=== PATIENT | male | born 1965 | race Caucasian/White ===

== ENCOUNTER 2018-03-04 19:09 | Emergency (ER) | payer OTHER ==
[~2018-03-04] VITALS: Ht 185.4 cm; Wt 128.8 kg
[2018-03-04] MEDS ORDERED: SODIUM CHLORIDE FLUSH 10ML SYR IVF ONE (19:30)
[2018-03-04] MEDS ORDERED: SODIUM CHLORIDE 0.9% 1,000ML IVBOLUS ONE (19:30)
[2018-03-04] MEDS ORDERED: MAALOX/HYOSCYAMINE/LIDOCAINE 45 ML BTL PO ONE (19:30)
[2018-03-04] MEDS ORDERED: FAMOTIDINE 20 MG/2 ML IVP ONE (19:30)
[2018-03-04] MEDS ORDERED: ONDANSETRON 2MG/ML, 2ML IVPush ONE (19:30)
[2018-03-04 19:45] VITALS: BP 110/80
[2018-03-04] MEDS ORDERED: FAMOTIDINE 20 MG/2 ML ONE (19:48)
[2018-03-04] MEDS ORDERED: ONDANSETRON 2MG/ML, 2ML ONE (19:48)
[2018-03-04 19:59] LABS: BASOPHILS # (AUTO) 0.03 x10^3/uL (0-0.1); BASOPHILS % (AUTO) 0 % (0-1); EOSINOPHILS # (AUTO) 0.27 x10^3/uL (0-0.4); EOSINOPHILS % (AUTO) 3 % (1-7); LYMPHOCYTES # (AUTO) 2.59 x10^3/uL (1-3.4); LYMPHOCYTES % (AUTO) 29 % (22-44); MD NO; MEAN CORPUSCULAR HEMOGLOBIN 29.6 pg (27.5-34.5); MEAN CORPUSCULAR HGB CONC 33.1 g/dL (33.2-36.2); MEAN CORPUSCULAR VOLUME 89.4 fL (81-97); MEAN PLATELET VOLUME 8.7 fL (7.4-10.4); MONOCYTES # (AUTO) 1.06 x10^3/uL (0.2-0.8); MONOCYTES % (AUTO) 12 % (2-9); NEUTROPHILS # (AUTO) 5.09 x10^3/uL (1.8-6.8); NEUTROPHILS % (AUTO) 56 % (42-75); PLATELET COUNT 388 x10^3/uL (130-400); RED BLOOD COUNT 5.75 x10^6/uL (4.38-5.82); RED CELL DISTRIBUTION WIDTH 13.7 % (9.4-14.8)
[2018-03-04 20:10] LABS: ALBUMIN 4.3 g/dL (3.4-5.0); ANION GAP 11 mmol/L (5-15); CALCIUM 9.2 mg/dL (8.5-10.1); CHLORIDE 101 mmol/L (98-107)
[2018-03-04 20:14] LABS: ALANINE AMINOTRANSFERASE 26 U/L (12-78); ALKALINE PHOSPHATASE 84 U/L (45-117); CREATININE 1.76 mg/dL (0.7-1.3); TOTAL PROTEIN 8.4 g/dL (6.4-8.2)
[2018-03-04] MEDS ORDERED: MAALOX/HYOSCYAMINE/LIDOCAINE 45 ML BTL ONE (20:30)
== END 2018-03-04 22:22 | disposition home or self-care (01) ==
LOC: ED 22:20
DX: R11.2 Nausea with vomiting, unspecified (principal)
CPT/HCPCS: 36415; 74220; 80053; 83690; 85025; 96361; 96374; 96375; 99285; J2405; J7030; S0028

== ENCOUNTER → 2018-06-25 | Outpatient (CLI) | payer OTHER ==
[~2018-06-25] MED LIST: LEVO50TA5 PO
[2018-06-25 13:04] LABS: ALANINE AMINOTRANSFERASE 16 U/L (12-78); ALBUMIN 3.3 g/dL (3.4-5.0); ANION GAP 6 mmol/L (5-15); CALCIUM 8.7 mg/dL (8.5-10.1); CHLORIDE 103 mmol/L (98-107); CREATININE 0.72 mg/dL (0.7-1.3)
[2018-06-25 13:06] LABS: ALKALINE PHOSPHATASE 92 U/L (45-117); BILIRUBIN,TOTAL 0.3 mg/dL (0.2-1.0); TOTAL PROTEIN 7.6 g/dL (6.4-8.2)
== END | disposition home or self-care (01) ==
LOC: STAR 11:47
PROVIDERS: ATTEND Surgery
DX: Z01.818 Encounter for other preprocedural examination (principal)
CPT/HCPCS: 36415; 80053; 93005

== ENCOUNTER 2018-07-02 08:54 | Inpatient (IN) | payer OTHER, BC ==
[~2018-07-02] VITALS: Ht 185.4 cm; Wt 119.6 kg
[~2018-07-02 08:54] MED LIST changes: +BUPIVACAINE/PF-EPI 0.5% 1:200K ONE
[2018-07-02] MEDS ORDERED: FLUT12HF2 INH (09:18)
[2018-07-02] MEDS ORDERED: LACTATED RINGERS 1,000 ML IV SCH (09:35)
[2018-07-02] MEDS ORDERED: MIDAZOLAM 1 MG/ML, 2ML ONE (10:29)
[2018-07-02] MEDS ORDERED: FENTANYL PF 250 MCG/5ML ONE ×2 (10:29→12:28)
[2018-07-02] MEDS ORDERED: INDOCYANINE GREEN 25 MG VIAL ONE (11:10)
[2018-07-02] MEDS ORDERED: PHENYLEPHRINE 10 MG/ML ONE (11:47)
[2018-07-02] MEDS ORDERED: CEFOTETAN 2 GM ONE (11:47)
[2018-07-02] MEDS ORDERED: LABETALOL 5MG/ML, 20ML IV PRN (12:30)
[2018-07-02] MEDS ORDERED: DIAZEPAM 5 MG/ML, 2ML IVPush PRN (12:30)
[2018-07-02] MEDS ORDERED: ONDANSETRON ODT 8 MG PO PRN (12:30)
[2018-07-02] MEDS ORDERED: PROMETHAZINE 25 MG/ML, 1ML IV PRN (12:30)
[2018-07-02] MEDS ORDERED: ONDANSETRON 2MG/ML, 2ML IV PRN (12:30)
[2018-07-02] MEDS ORDERED: FENTANYL PF 100 MCG/2ML IV PRN (12:30)
[2018-07-02] MEDS ORDERED: OXYcodone 5 MG/5 ML ORAL.SOL UDC PO PRN (12:30)
[2018-07-02] MEDS ORDERED: ALBUTEROL SULFATE 2.5 MG/3 ML NPPB PRN (12:30)
[2018-07-02] MEDS ORDERED: MEPERIDINE/PF 25MG/0.5ML IVPush PRN (12:30)
[2018-07-02] MEDS ORDERED: hydrALAzine 20 MG/ML, 1ML IV PRN (12:30)
[2018-07-02] MEDS ORDERED: PROCHLORPERAZINE 5 MG/ML, 2ML IV PRN (12:30)
[2018-07-02] MEDS ORDERED: SUGAMMADEX 200 MG/2 ML IVPush ONE (12:49)
[2018-07-02] MEDS ORDERED: BUPIVACAINE/PF-EPI 0.5% 1:200K ONE (12:49)
[2018-07-02] MEDS ORDERED: PROPOFOL 10 MG/ML, 20ML ONE (17:40)
[2018-07-02] MEDS ORDERED: CEFAZOLIN 1,000 MG ONE (17:40)
[2018-07-02] MEDS ORDERED: ONDANSETRON 2MG/ML, 2ML ONE (17:40)
[2018-07-02] MEDS ORDERED: NEOSTIGMINE 1 MG/ML, 10ML ONE (17:40)
[2018-07-02] MEDS ORDERED: GLYCOPYRROLATE 0.2MG/1ML, 5ML ONE (17:40)
[2018-07-02] MEDS ORDERED: DEXAMETHASONE 4 MG/ML, 1ML ONE (17:40)
[2018-07-02] MEDS ORDERED: ROCURONIUM 10MG/ML,5ML ONE ×2 (17:40)
[2018-07-02] MEDS ORDERED: SUCCINYLCHOLINE 20 MG/ML, 10ML ONE (17:40)
[2018-07-02] MEDS ORDERED: FENTANYL PF 100 MCG/2ML ONE ×2 (18:02→18:59)
[2018-07-02] MEDS ORDERED: HYDROmorphone 2 MG/ML, 1ML ONE (18:59)
[2018-07-02] MEDS ORDERED: HYDROmorphone PCA 30 MG/30 ML IV PRN (19:00)
[2018-07-02] MEDS: HYDROmorphone 2 MG/ML, 1ML IVPush PRN ×3 (19:04→19:37)
[2018-07-02 19:15] LABS: BASOPHILS % (AUTO) 0 % (0-1); EOSINOPHILS % (AUTO) 0 % (1-7); LYMPHOCYTES # (AUTO) 0.47 x10^3/uL (1-3.4); LYMPHOCYTES % (AUTO) 5 % (22-44); MD NO; MEAN CORPUSCULAR HEMOGLOBIN 31.8 pg (27.5-34.5); MEAN CORPUSCULAR HGB CONC 33.3 g/dL (33.2-36.2); MEAN CORPUSCULAR VOLUME 95.5 fL (81-97); MEAN PLATELET VOLUME 6.6 fL (7.4-10.4); MONOCYTES % (AUTO) 5 % (2-9); NEUTROPHILS # (AUTO) 9.09 x10^3/uL (1.8-6.8); NEUTROPHILS % (AUTO) 90 % (42-75); PLATELET COUNT 379 x10^3/uL (130-400); RED BLOOD COUNT 3.92 x10^6/uL (4.38-5.82); RED CELL DISTRIBUTION WIDTH 18.8 % (9.4-14.8)
[2018-07-02 19:20] LABS: INTERNATIONAL NORMALIZED RATIO 1.04 (0.93-1.1)
[2018-07-02 19:23] LABS: ALANINE AMINOTRANSFERASE 23 U/L (12-78); ALBUMIN 2.7 g/dL (3.4-5.0); ANION GAP 8 mmol/L (5-15); CHLORIDE 107 mmol/L (98-107); CREATININE 1.22 mg/dL (0.7-1.3)
[2018-07-02 19:36] LABS: ALKALINE PHOSPHATASE 86 U/L (45-117); BILIRUBIN,TOTAL 0.4 mg/dL (0.2-1.0); TOTAL PROTEIN 6.7 g/dL (6.4-8.2)
[2018-07-02] MEDS ORDERED: DIPHENHYDRAMINE 50 MG/ML, 1ML IVPush PRN (21:00)
[2018-07-02] MEDS ORDERED: DIPHENHYDRAMINE 25 MG CAPSULE PO PRN (21:00)
[2018-07-02] MEDS ORDERED: BUDESONIDE 0.5 MG/2 ML INHA NPPB PRN (21:30)
[2018-07-02] MEDS: LACTATED RINGERS 1,000 ML IV SCH (22:28)
[2018-07-02] MEDS ORDERED: ALBUTEROL SULFATE 2.5 MG/3 ML NPPB SCH (23:00)
[2018-07-03] MEDS: LACTATED RINGERS 1,000 ML IV SCH ×3 (06:20→22:03)
[2018-07-03] MEDS: ENOXAPARIN 40 MG/0.4 ML SQ SCH (09:30)
[2018-07-03 20:21] VITALS: BP 125/83
[2018-07-04 00:35] VITALS: BP 136/89
[2018-07-04] MEDS: LACTATED RINGERS 1,000 ML IV SCH ×2 (05:33→19:38)
[2018-07-04 06:44] VITALS: BP 128/87
[2018-07-04] MEDS: ENOXAPARIN 40 MG/0.4 ML SQ SCH (10:03)
[2018-07-04 12:20] VITALS: BP 116/79
[2018-07-04 19:35] VITALS: BP 119/75
[2018-07-05 01:18] VITALS: BP 128/89
[2018-07-05 08:01] VITALS: BP 127/86
[2018-07-05] MEDS: ENOXAPARIN 40 MG/0.4 ML SQ SCH (08:31)
[2018-07-05 14:00] VITALS: BP 146/81
[2018-07-05] MEDS: LACTATED RINGERS 1,000 ML IV SCH (16:16)
[2018-07-05 18:40] VITALS: BP 138/81
[2018-07-06 02:00] VITALS: BP 137/88
[2018-07-06] MEDS: ENOXAPARIN 40 MG/0.4 ML SQ SCH (08:04)
[2018-07-06 08:48] VITALS: BP 125/88
[2018-07-06] MEDS: HYDROcodone/APAP 7.5-325MG/15ML UDC PO PRN ×4 (14:09→23:51)
[2018-07-06 15:14] VITALS: BP 125/98
[2018-07-06 18:33] VITALS: BP 122/80
[2018-07-07 02:11] VITALS: BP 120/66
[2018-07-07] MEDS: HYDROcodone/APAP 7.5-325MG/15ML UDC PO PRN ×5 (04:00→20:12)
[2018-07-07 06:50] LABS: CREATININE 0.59 mg/dL (0.7-1.3)
[2018-07-07] MEDS: ENOXAPARIN 40 MG/0.4 ML SQ SCH (08:11)
[2018-07-07 08:22] VITALS: BP 116/74
[2018-07-07 15:27] VITALS: BP 108/70
[2018-07-07 21:14] VITALS: BP 117/82
[2018-07-08] MEDS: HYDROcodone/APAP 7.5-325MG/15ML UDC PO PRN ×5 (00:25→23:38)
[2018-07-08 02:47] VITALS: BP 144/97
[2018-07-08 05:40] LABS: BASOPHILS # (AUTO) 0.02 x10^3/uL (0-0.1); BASOPHILS % (AUTO) 0 % (0-1); EOSINOPHILS # (AUTO) 0.23 x10^3/uL (0-0.4); EOSINOPHILS % (AUTO) 5 % (1-7); LYMPHOCYTES # (AUTO) 0.81 x10^3/uL (1-3.4); LYMPHOCYTES % (AUTO) 19 % (22-44); MD NO; MEAN CORPUSCULAR HEMOGLOBIN 31.8 pg (27.5-34.5); MEAN CORPUSCULAR HGB CONC 33.2 g/dL (33.2-36.2); MEAN CORPUSCULAR VOLUME 95.7 fL (81-97); MEAN PLATELET VOLUME 7.2 fL (7.4-10.4); MONOCYTES % (AUTO) 16 % (2-9); NEUTROPHILS # (AUTO) 2.65 x10^3/uL (1.8-6.8); NEUTROPHILS % (AUTO) 60 % (42-75); PLATELET COUNT 304 x10^3/uL (130-400); RED BLOOD COUNT 4.33 x10^6/uL (4.38-5.82); RED CELL DISTRIBUTION WIDTH 17.3 % (9.4-14.8)
[2018-07-08 05:44] LABS: ANION GAP 10 mmol/L (5-15); CALCIUM 8.4 mg/dL (8.5-10.1); CHLORIDE 100 mmol/L (98-107)
[2018-07-08 05:48] LABS: ALANINE AMINOTRANSFERASE 15 U/L (12-78); ALKALINE PHOSPHATASE 83 U/L (45-117); BILIRUBIN,TOTAL 0.4 mg/dL (0.2-1.0); CREATININE 0.86 mg/dL (0.7-1.3); TOTAL PROTEIN 6.9 g/dL (6.4-8.2)
[2018-07-08] MEDS: ONDANSETRON 2MG/ML, 2ML IV PRN (05:53)
[2018-07-08 06:59] VITALS: BP 143/95
[2018-07-08] MEDS: ENOXAPARIN 40 MG/0.4 ML SQ SCH (07:43)
[2018-07-08] MEDS ORDERED: D5%-0.45NACL+KCL 20MEQ 1,000 ML IV SCH (09:00)
[2018-07-08] MEDS ORDERED: OMNIPAQUE 350 MG/ML, 100ML BOTTLE ONE (09:21)
[2018-07-08] MEDS ORDERED: ALBUTEROL/IPRATROPIUM 2.5MG/0.5MG, 3 ML NPPB PRN (10:00)
[2018-07-08] MEDS ORDERED: TPN PER PHARMACY MC PRN (10:30)
[2018-07-08] MEDS: ALBUTEROL/IPRATROPIUM 2.5MG/0.5MG, 3 ML NPPB SCH ×2 (10:40→14:31)
[2018-07-08] MEDS: BUDESONIDE 0.5 MG/2 ML INHA NPPB SCH ×2 (10:40→21:00)
[2018-07-08] MEDS ORDERED: LIDOCAINE-MPF 1%, 5ML ONE (11:47)
[2018-07-08] MEDS ORDERED: KETOROLAC 30 MG/1 ML IVPush PRN (14:30)
[2018-07-08] MEDS ORDERED: KETOROLAC 30 MG/1 ML ONE (14:36)
[2018-07-08 14:51] VITALS: BP 131/79
[2018-07-08] MEDS ORDERED: FILTER, DISP 1.2 MICRON FOR TPN/PVN IV PRN (15:30)
[2018-07-08] MEDS ORDERED: [UNRECOGNIZED DRUG - OTHER] IV SCH (17:00)
[2018-07-08] MEDS ORDERED: DEXTROSE 70% IV SCH (17:00)
[2018-07-08] MEDS ORDERED: SODIUM CHLORIDE 0.9% 1,000ML IVBOLUS ONE (17:00)
[2018-07-08] MEDS ORDERED: FAT EMUL IV SCH (17:00)
[2018-07-08] MEDS ORDERED: SMOF TPN IV SCH (17:00)
[2018-07-08] MEDS ORDERED: DEXTROSE 50%, 50ML SYRINGE IVPush PRN (17:00)
[2018-07-08] MEDS ORDERED: AMINO ACID 10% IV SCH (17:00)
[2018-07-08] MEDS ORDERED: DEXTROSE 10% 500 ML IV PRN (17:00)
[2018-07-08] MEDS: D5%-0.45% NACL 1,000 ML IV SCH (17:46)
[2018-07-08 20:00] VITALS: BP 138/91
[2018-07-08] MEDS: INSULIN REGULAR MEDIUM DOSE Q6H X 48HRS SQ-INSULIN SCH (22:16)
[2018-07-09 00:20] VITALS: BP 141/92
[2018-07-09] MEDS: ALBUTEROL/IPRATROPIUM 2.5MG/0.5MG, 3 ML NPPB SCH ×4 (02:46→21:00)
[2018-07-09] MEDS: INSULIN REGULAR MEDIUM DOSE Q6H X 48HRS SQ-INSULIN SCH ×4 (03:37→21:50)
[2018-07-09] MEDS: HYDROcodone/APAP 7.5-325MG/15ML UDC PO PRN ×2 (03:38→08:35)
[2018-07-09 03:47] VITALS: BP 127/85
[2018-07-09] MEDS: D5%-0.45% NACL 1,000 ML IV SCH (05:18)
[2018-07-09 06:02] LABS: ALANINE AMINOTRANSFERASE 13 U/L (12-78); ALBUMIN 1.8 g/dL (3.4-5.0); ANION GAP 12 mmol/L (5-15); CHLORIDE 98 mmol/L (98-107); CREATININE 1.82 mg/dL (0.7-1.3)
[2018-07-09 06:07] LABS: MEAN CORPUSCULAR HGB CONC 33.4 g/dL (33.2-36.2); MEAN CORPUSCULAR VOLUME 95.8 fL (81-97); MEAN PLATELET VOLUME 7.8 fL (7.4-10.4); PLATELET COUNT 317 x10^3/uL (130-400); RED BLOOD COUNT 3.92 x10^6/uL (4.38-5.82); RED CELL DISTRIBUTION WIDTH 17.3 % (9.4-14.8)
[2018-07-09 06:12] LABS: ALKALINE PHOSPHATASE 85 U/L (45-117); BILIRUBIN,TOTAL 0.3 mg/dL (0.2-1.0); PREALBUMIN 10.1 mg/dL (20.0-40.0); TOTAL PROTEIN 6.5 g/dL (6.4-8.2); TRIGLYCERIDES 159 mg/dL (50-200)
[2018-07-09 06:27] LABS: MD YES
[2018-07-09 06:39] LABS: <PLATELET ESTIMATE> ADEQUATE; <PLT MORPHOLOGY> NORMAL PLT MORPH; <RBC MORPHOLOGY> NORMAL; BAND#(MANUAL) 0.59 x10^3/uL; BANDS%(MANUAL) 16 % (0-7); EOS#(MANUAL) 0.15 x10^3/uL (0.0-0.4); EOS% (MANUAL) 4 % (1-7); LYMPH#(MANUAL) 0.89 x10^3/uL (1-3.4); LYMPHS% (MANUAL) 24 % (22-44); METAMYELOCYTES# (MANUAL) 0.07 x10^3/uL (0-0); METAMYELOCYTES% (MANUAL) 2 % (0-1); MONOS#(MANUAL) 0.22 x10^3/uL (0.3-2.7); MONOS% (MANUAL) 6 % (2-9); SEG#(MANUAL) 1.78 x10^3/uL (1.8-6.8); SEGS% (MANUAL) 48 % (42-75)
[2018-07-09 07:39] VITALS: BP 137/92
[2018-07-09] MEDS: BUDESONIDE 0.5 MG/2 ML INHA NPPB SCH ×2 (08:15→21:00)
[2018-07-09] MEDS: ENOXAPARIN 40 MG/0.4 ML SQ SCH (08:30)
[2018-07-09 09:07] LABS: ALANINE AMINOTRANSFERASE 14 U/L (12-78); ANION GAP 10 mmol/L (5-15); CALCIUM 7.8 mg/dL (8.5-10.1); CHLORIDE 97 mmol/L (98-107); CREATININE 1.61 mg/dL (0.7-1.3)
[2018-07-09 09:09] LABS: ALKALINE PHOSPHATASE 90 U/L (45-117); BILIRUBIN,TOTAL 0.4 mg/dL (0.2-1.0); TOTAL PROTEIN 6.7 g/dL (6.4-8.2)
[2018-07-09 10:19] VITALS: BP 121/79
[2018-07-09] MEDS ORDERED: SODIUM CHLORIDE 0.9% 1,000 ML IV SCH (12:00)
[2018-07-09] MEDS ORDERED: SODIUM CHLORIDE 0.9% 1,000 ML IV ONE (12:00)
[2018-07-09] MEDS ORDERED: HALOPERIDOL 5 MG/ML IM PRN (12:00)
[2018-07-09] MEDS: OCTREOTIDE 100MCG/ML, 1ML (0.1MG/ML) SQ SCH ×2 (12:18→20:25)
[2018-07-09 12:49] VITALS: BP 123/81
[2018-07-09] MEDS: ONDANSETRON 2MG/ML, 2ML IV PRN (13:08)
[2018-07-09] MEDS: HEPARIN 5,000 UNITS/ML, 1ML SQ SCH ×2 (13:08→21:32)
[2018-07-09] MEDS: HYDROmorphone PCA 30 MG/30 ML IV PRN (15:45)
[2018-07-09 16:45] LABS: ANION GAP 10 mmol/L (5-15); CALCIUM 7.9 mg/dL (8.5-10.1); CHLORIDE 99 mmol/L (98-107); CREATININE 1.14 mg/dL (0.7-1.3)
[2018-07-09] MEDS ORDERED: SMOF TPN IV SCH (17:00)
[2018-07-09] MEDS ORDERED: AMINO ACID 10% IV SCH (17:00)
[2018-07-09] MEDS ORDERED: FILTER, DISP 1.2 MICRON FOR TPN/PVN IV PRN (17:00)
[2018-07-09] MEDS ORDERED: [UNRECOGNIZED DRUG - OTHER] IV SCH (17:00)
[2018-07-09] MEDS ORDERED: DEXTROSE 70% IV SCH (17:00)
[2018-07-09] MEDS ORDERED: FAT EMUL IV SCH (17:00)
[2018-07-09 19:45] VITALS: BP 112/69
[2018-07-09] MEDS: [UNRECOGNIZED DRUG - REMARK] MC SCH (21:00)
[2018-07-10] MEDS: [UNRECOGNIZED DRUG - REMARK] MC SCH ×6 (01:00→20:52)
[2018-07-10] MEDS: ALBUTEROL/IPRATROPIUM 2.5MG/0.5MG, 3 ML NPPB SCH ×4 (03:00→22:07)
[2018-07-10] MEDS: OCTREOTIDE 100MCG/ML, 1ML (0.1MG/ML) SQ SCH ×3 (03:04→19:57)
[2018-07-10] MEDS: INSULIN REGULAR MEDIUM DOSE Q6H X 48HRS SQ-INSULIN SCH ×4 (03:12→21:23)
[2018-07-10 03:18] VITALS: BP 124/75
[2018-07-10] MEDS: HEPARIN 5,000 UNITS/ML, 1ML SQ SCH ×3 (05:02→21:11)
[2018-07-10 06:00] LABS: CHLORIDE 98 mmol/L (98-107)
[2018-07-10 06:07] LABS: MEAN CORPUSCULAR HEMOGLOBIN 32.1 pg (27.5-34.5); MEAN CORPUSCULAR HGB CONC 33.7 g/dL (33.2-36.2); MEAN CORPUSCULAR VOLUME 95.4 fL (81-97); MEAN PLATELET VOLUME 8.1 fL (7.4-10.4); PLATELET COUNT 290 x10^3/uL (130-400); RED BLOOD COUNT 3.58 x10^6/uL (4.38-5.82); RED CELL DISTRIBUTION WIDTH 17.3 % (9.4-14.8)
[2018-07-10 06:16] LABS: ANION GAP 7 mmol/L (5-15); CALCIUM 7.8 mg/dL (8.5-10.1); CREATININE 0.78 mg/dL (0.7-1.3)
[2018-07-10 06:26] LABS: MD YES
[2018-07-10 06:28] LABS: EOS#(MANUAL) 0.37 x10^3/uL (0.0-0.4); EOS% (MANUAL) 7 % (1-7)
[2018-07-10 06:30] LABS: BAND#(MANUAL) 1.06 x10^3/uL; BANDS%(MANUAL) 20 % (0-7); LYMPH#(MANUAL) 0.69 x10^3/uL (1-3.4); LYMPHS% (MANUAL) 13 % (22-44); MONOS% (MANUAL) 17 % (2-9); SEG#(MANUAL) 2.28 x10^3/uL (1.8-6.8); SEGS% (MANUAL) 43 % (42-75)
[2018-07-10 06:31] LABS: <RBC MORPHOLOGY> NORMAL
[2018-07-10 06:32] LABS: <PLATELET ESTIMATE> ADEQUATE; <PLT MORPHOLOGY> NORMAL PLT MORPH
[2018-07-10] MEDS ORDERED: PHENOL THROAT SPRAY BOTTLE MM PRN (07:30)
[2018-07-10 07:51] VITALS: BP 112/63
[2018-07-10] MEDS: BUDESONIDE 0.5 MG/2 ML INHA NPPB SCH ×2 (08:02→22:07)
[2018-07-10 09:26] LABS: ALANINE AMINOTRANSFERASE 13 U/L (12-78); ALBUMIN 1.6 g/dL (3.4-5.0); ANION GAP 5 mmol/L (5-15); CALCIUM 7.6 mg/dL (8.5-10.1); CHLORIDE 98 mmol/L (98-107); CREATININE 0.77 mg/dL (0.7-1.3)
[2018-07-10 09:28] LABS: ALKALINE PHOSPHATASE 101 U/L (45-117); BILIRUBIN,TOTAL 0.3 mg/dL (0.2-1.0); TOTAL PROTEIN 5.8 g/dL (6.4-8.2)
[2018-07-10] MEDS ORDERED: SODIUM CHLORIDE 0.9% 1,000 ML IV SCH (11:00)
[2018-07-10 12:14] VITALS: BP 123/84
[2018-07-10] MEDS ORDERED: AMINO ACID 10% IV SCH (17:00)
[2018-07-10] MEDS ORDERED: FILTER, DISP 1.2 MICRON FOR TPN/PVN IV PRN (17:00)
[2018-07-10] MEDS ORDERED: [UNRECOGNIZED DRUG - OTHER] IV SCH (17:00)
[2018-07-10] MEDS ORDERED: SMOF TPN IV SCH (17:00)
[2018-07-10] MEDS ORDERED: DEXTROSE 70% IV SCH (17:00)
[2018-07-10] MEDS ORDERED: FAT EMUL IV SCH (17:00)
[2018-07-10 19:30] VITALS: BP 92/57
[2018-07-10 22:44] VITALS: BP 128/71
[2018-07-11] MEDS: [UNRECOGNIZED DRUG - REMARK] MC SCH ×4 (01:00→12:17)
[2018-07-11 02:23] VITALS: BP 112/65
[2018-07-11] MEDS: OCTREOTIDE 100MCG/ML, 1ML (0.1MG/ML) SQ SCH ×3 (03:15→20:31)
[2018-07-11] MEDS: INSULIN REGULAR MEDIUM DOSE Q6H X 48HRS SQ-INSULIN SCH ×3 (03:21→20:38)
[2018-07-11] MEDS: ALBUTEROL/IPRATROPIUM 2.5MG/0.5MG, 3 ML NPPB SCH ×4 (03:50→20:58)
[2018-07-11] MEDS: HEPARIN 5,000 UNITS/ML, 1ML SQ SCH (04:59)
[2018-07-11 05:16] LABS: MEAN CORPUSCULAR HEMOGLOBIN 31.7 pg (27.5-34.5); MEAN CORPUSCULAR HGB CONC 33.3 g/dL (33.2-36.2); MEAN CORPUSCULAR VOLUME 95.4 fL (81-97); MEAN PLATELET VOLUME 7.9 fL (7.4-10.4); PLATELET COUNT 307 x10^3/uL (130-400); RED BLOOD COUNT 3.44 x10^6/uL (4.38-5.82); RED CELL DISTRIBUTION WIDTH 17.2 % (9.4-14.8)
[2018-07-11 05:27] LABS: ANION GAP 7 mmol/L (5-15); CALCIUM 7.5 mg/dL (8.5-10.1); CHLORIDE 104 mmol/L (98-107); CREATININE 0.72 mg/dL (0.7-1.3)
[2018-07-11 05:54] LABS: MD YES
[2018-07-11 05:55] LABS: BAND#(MANUAL) 2.14 x10^3/uL; BANDS%(MANUAL) 20 % (0-7); EOS#(MANUAL) 0.11 x10^3/uL (0.0-0.4); EOS% (MANUAL) 1 % (1-7); LYMPH#(MANUAL) 1.07 x10^3/uL (1-3.4); LYMPHS% (MANUAL) 10 % (22-44); METAMYELOCYTES# (MANUAL) 0.21 x10^3/uL (0-0); METAMYELOCYTES% (MANUAL) 2 % (0-1); MONOS#(MANUAL) 0.54 x10^3/uL (0.3-2.7); MONOS% (MANUAL) 5 % (2-9); SEG#(MANUAL) 6.63 x10^3/uL (1.8-6.8); SEGS% (MANUAL) 62 % (42-75)
[2018-07-11 05:57] LABS: <PLATELET ESTIMATE> ADEQUATE; <PLT MORPHOLOGY> NORMAL PLT MORPH; ANISOCYTOSIS 1+; PMNS WITH VACUOLES 1+; POLYCHROMASIA 1+; TOXIC GRAN 1+
[2018-07-11] MEDS: BUDESONIDE 0.5 MG/2 ML INHA NPPB SCH ×2 (07:42→20:58)
[2018-07-11 07:59] VITALS: BP 88/57
[2018-07-11 08:14] VITALS: BP 104/54
[2018-07-11 09:26] LABS: ALBUMIN 1.6 g/dL (3.4-5.0)
[2018-07-11 09:29] LABS: ALANINE AMINOTRANSFERASE 13 U/L (12-78); ALKALINE PHOSPHATASE 100 U/L (45-117); BILIRUBIN,TOTAL 0.3 mg/dL (0.2-1.0)
[2018-07-11] MEDS ORDERED: OMNIPAQUE 350 MG/ML, 150 ML BOTTLE ONE (10:06)
[2018-07-11] MEDS ORDERED: HEPARIN 5,000 UNITS/ML, 1ML IV ONE (11:30)
[2018-07-11 12:30] VITALS: BP 133/74
[2018-07-11] MEDS: HEPARIN 25,000 UNITS/500ML PMX 500 ML IV PRN (12:49)
[2018-07-11] MEDS ORDERED: FILTER, DISP 1.2 MICRON FOR TPN/PVN IV PRN (17:00)
[2018-07-11] MEDS ORDERED: AMINO ACID 10% IV SCH (17:00)
[2018-07-11] MEDS ORDERED: [UNRECOGNIZED DRUG - OTHER] IV SCH (17:00)
[2018-07-11] MEDS ORDERED: SMOF TPN IV SCH (17:00)
[2018-07-11] MEDS ORDERED: DEXTROSE 70% IV SCH (17:00)
[2018-07-11] MEDS ORDERED: FAT EMUL IV SCH (17:00)
[2018-07-11 19:30] VITALS: BP 118/70
[2018-07-11] MEDS: HEPARIN 5,000 UNITS/ML, 1ML IV PRN (20:25)
[2018-07-12] MEDS: ALBUTEROL/IPRATROPIUM 2.5MG/0.5MG, 3 ML NPPB SCH ×4 (02:35→21:27)
[2018-07-12 03:02] VITALS: BP 103/60
[2018-07-12 03:08] LABS: MEAN CORPUSCULAR HGB CONC 33.6 g/dL (33.2-36.2); MEAN CORPUSCULAR VOLUME 95.3 fL (81-97); MEAN PLATELET VOLUME 7.7 fL (7.4-10.4); PLATELET COUNT 322 x10^3/uL (130-400); RED BLOOD COUNT 3.21 x10^6/uL (4.38-5.82); RED CELL DISTRIBUTION WIDTH 17.4 % (9.4-14.8)
[2018-07-12 03:18] LABS: ALANINE AMINOTRANSFERASE 11 U/L (12-78); ALBUMIN 1.4 g/dL (3.4-5.0); ANION GAP 5 mmol/L (5-15); CALCIUM 7.3 mg/dL (8.5-10.1); CHLORIDE 106 mmol/L (98-107); CREATININE 0.63 mg/dL (0.7-1.3)
[2018-07-12 03:20] LABS: ALKALINE PHOSPHATASE 99 U/L (45-117); BILIRUBIN,TOTAL 0.3 mg/dL (0.2-1.0); TOTAL PROTEIN 5.9 g/dL (6.4-8.2)
[2018-07-12] MEDS: OCTREOTIDE 100MCG/ML, 1ML (0.1MG/ML) SQ SCH ×3 (03:21→20:04)
[2018-07-12 03:39] LABS: MD YES
[2018-07-12 03:50] LABS: ANISOCYTOSIS 1+; BAND#(MANUAL) 1.58 x10^3/uL; BANDS%(MANUAL) 14 % (0-7); EOS#(MANUAL) 0.11 x10^3/uL (0.0-0.4); EOS% (MANUAL) 1 % (1-7); LYMPH#(MANUAL) 1.02 x10^3/uL (1-3.4); LYMPHS% (MANUAL) 9 % (22-44); METAMYELOCYTES# (MANUAL) 0.11 x10^3/uL (0-0); METAMYELOCYTES% (MANUAL) 1 % (0-1); MONOS#(MANUAL) 1.02 x10^3/uL (0.3-2.7); MONOS% (MANUAL) 9 % (2-9); SEG#(MANUAL) 7.46 x10^3/uL (1.8-6.8); SEGS% (MANUAL) 66 % (42-75)
[2018-07-12 03:51] LABS: <PLATELET ESTIMATE> ADEQUATE; <PLT MORPHOLOGY> NORMAL PLT MORPH; PMNS WITH VACUOLES 1+; POLYCHROMASIA 1+; TOXIC GRAN 1+
[2018-07-12] MEDS: HEPARIN 5,000 UNITS/ML, 1ML IV PRN ×3 (03:57→18:00)
[2018-07-12] MEDS: BUDESONIDE 0.5 MG/2 ML INHA NPPB SCH ×2 (07:25→21:27)
[2018-07-12 07:58] VITALS: BP 130/84
[2018-07-12] MEDS: HEPARIN 25,000 UNITS/500ML PMX 500 ML IV PRN (09:46)
[2018-07-12] MEDS: INSULIN REGULAR MEDIUM DOSE QDAY SQ-INSULIN SCH (09:47)
[2018-07-12 14:57] VITALS: BP 137/80
[2018-07-12] MEDS ORDERED: FAT EMUL IV SCH ×2 (17:00)
[2018-07-12] MEDS ORDERED: DEXTROSE 70% IV SCH ×2 (17:00)
[2018-07-12] MEDS ORDERED: [UNRECOGNIZED DRUG - OTHER] IV SCH ×2 (17:00)
[2018-07-12] MEDS ORDERED: AMINO ACID 10% IV SCH ×2 (17:00)
[2018-07-12] MEDS ORDERED: FILTER, DISP 1.2 MICRON FOR TPN/PVN IV PRN (17:00)
[2018-07-12] MEDS ORDERED: SMOF TPN IV SCH ×2 (17:00)
[2018-07-12 18:58] VITALS: BP 149/95
[2018-07-13 01:01] VITALS: BP 150/98
[2018-07-13] MEDS: HEPARIN 25,000 UNITS/500ML PMX 500 ML IV PRN ×3 (01:17→23:26)
[2018-07-13] MEDS: HYDROmorphone PCA 30 MG/30 ML IV PRN (01:27)
[2018-07-13] MEDS: HEPARIN 5,000 UNITS/ML, 1ML IV PRN ×4 (01:46→23:24)
[2018-07-13] MEDS: OCTREOTIDE 100MCG/ML, 1ML (0.1MG/ML) SQ SCH ×3 (03:34→20:08)
[2018-07-13] MEDS: ALBUTEROL/IPRATROPIUM 2.5MG/0.5MG, 3 ML NPPB SCH ×4 (03:41→20:24)
[2018-07-13 05:32] LABS: MEAN CORPUSCULAR HEMOGLOBIN 31.2 pg (27.5-34.5); MEAN CORPUSCULAR HGB CONC 32.8 g/dL (33.2-36.2); MEAN CORPUSCULAR VOLUME 95.2 fL (81-97); MEAN PLATELET VOLUME 7.9 fL (7.4-10.4); PLATELET COUNT 339 x10^3/uL (130-400); RED BLOOD COUNT 3.26 x10^6/uL (4.38-5.82); RED CELL DISTRIBUTION WIDTH 17.2 % (9.4-14.8)
[2018-07-13 05:37] LABS: ALANINE AMINOTRANSFERASE 12 U/L (12-78); ALBUMIN 1.5 g/dL (3.4-5.0); ANION GAP 5 mmol/L (5-15); CALCIUM 7.4 mg/dL (8.5-10.1); CHLORIDE 103 mmol/L (98-107); CREATININE 0.54 mg/dL (0.7-1.3)
[2018-07-13 05:40] LABS: ALKALINE PHOSPHATASE 101 U/L (45-117); BILIRUBIN,TOTAL 0.4 mg/dL (0.2-1.0); TOTAL PROTEIN 5.9 g/dL (6.4-8.2)
[2018-07-13 06:37] LABS: MD YES
[2018-07-13 06:38] LABS: BAND#(MANUAL) 0.38 x10^3/uL; BANDS%(MANUAL) 3 % (0-7); LYMPH#(MANUAL) 1.38 x10^3/uL (1-3.4); LYMPHS% (MANUAL) 11 % (22-44); METAMYELOCYTES# (MANUAL) 0.13 x10^3/uL (0-0); METAMYELOCYTES% (MANUAL) 1 % (0-1); MONOS#(MANUAL) 1.25 x10^3/uL (0.3-2.7); MONOS% (MANUAL) 10 % (2-9)
[2018-07-13 06:39] LABS: EOS#(MANUAL) 0.38 x10^3/uL (0.0-0.4); EOS% (MANUAL) 3 % (1-7); SEGS% (MANUAL) 72 % (42-75)
[2018-07-13 06:40] LABS: ANISOCYTOSIS 1+; POLYCHROMASIA 1+
[2018-07-13 06:41] LABS: <PLATELET ESTIMATE> ADEQUATE; <PLT MORPHOLOGY> NORMAL PLT MORPH; TOXIC GRAN 1+
[2018-07-13] MEDS: BUDESONIDE 0.5 MG/2 ML INHA NPPB SCH ×2 (06:47→20:23)
[2018-07-13 07:27] VITALS: BP 135/91
[2018-07-13] MEDS: INSULIN REGULAR MEDIUM DOSE QDAY SQ-INSULIN SCH ×2 (08:35→21:36)
[2018-07-13] MEDS ORDERED: SODIUM CHLORIDE 0.9% 1,000 ML IV SCH (10:00)
[2018-07-13 15:43] VITALS: BP 146/91
[2018-07-13] MEDS ORDERED: [UNRECOGNIZED DRUG - OTHER] IV SCH (17:00)
[2018-07-13] MEDS ORDERED: FILTER, DISP 1.2 MICRON FOR TPN/PVN IV PRN (17:00)
[2018-07-13] MEDS ORDERED: FAT EMUL IV SCH (17:00)
[2018-07-13] MEDS ORDERED: DEXTROSE 70% IV SCH (17:00)
[2018-07-13] MEDS ORDERED: SMOF TPN IV SCH (17:00)
[2018-07-13] MEDS ORDERED: AMINO ACID 10% IV SCH (17:00)
[2018-07-13 19:30] VITALS: BP 149/93
[2018-07-14 01:26] VITALS: BP 136/86
[2018-07-14] MEDS: ALBUTEROL/IPRATROPIUM 2.5MG/0.5MG, 3 ML NPPB SCH ×4 (02:25→21:16)
[2018-07-14] MEDS: OCTREOTIDE 100MCG/ML, 1ML (0.1MG/ML) SQ SCH ×3 (03:24→20:17)
[2018-07-14 06:06] LABS: MEAN CORPUSCULAR HGB CONC 32.4 g/dL (33.2-36.2); MEAN CORPUSCULAR VOLUME 95.8 fL (81-97); MEAN PLATELET VOLUME 7.9 fL (7.4-10.4); PLATELET COUNT 477 x10^3/uL (130-400); RED CELL DISTRIBUTION WIDTH 16.8 % (9.4-14.8)
[2018-07-14 06:09] LABS: CHLORIDE 103 mmol/L (98-107)
[2018-07-14 06:18] LABS: ALANINE AMINOTRANSFERASE 12 U/L (12-78); ALBUMIN 1.5 g/dL (3.4-5.0); ALKALINE PHOSPHATASE 128 U/L (45-117); ANION GAP 7 mmol/L (5-15); BILIRUBIN,TOTAL 0.3 mg/dL (0.2-1.0); CALCIUM 8.1 mg/dL (8.5-10.1); CREATININE 0.52 mg/dL (0.7-1.3); PREALBUMIN 4.5 mg/dL (20.0-40.0); TOTAL PROTEIN 6.4 g/dL (6.4-8.2); TRIGLYCERIDES 78 mg/dL (50-200)
[2018-07-14 06:26] LABS: MD YES
[2018-07-14 06:27] LABS: BAND#(MANUAL) 0.55 x10^3/uL; BANDS%(MANUAL) 3 % (0-7); METAMYELOCYTES# (MANUAL) 0.18 x10^3/uL (0-0); METAMYELOCYTES% (MANUAL) 1 % (0-1); MONOS#(MANUAL) 2.38 x10^3/uL (0.3-2.7); MONOS% (MANUAL) 13 % (2-9); MYELOCYTES# (MANUAL) 0.18 x10^3/uL (0-0); MYELOCYTES% (MANUAL) 1 % (0-0)
[2018-07-14 06:28] LABS: ANISOCYTOSIS 1+; EOS#(MANUAL) 0.37 x10^3/uL (0.0-0.4); EOS% (MANUAL) 2 % (1-7); LYMPHS% (MANUAL) 6 % (22-44); POLYCHROMASIA 1+; SEG#(MANUAL) 13.54 x10^3/uL (1.8-6.8); SEGS% (MANUAL) 74 % (42-75)
[2018-07-14 06:29] LABS: <PLATELET ESTIMATE> INCREASED; <PLT MORPHOLOGY> NORMAL PLT MORPH; TOXIC GRAN 1+
[2018-07-14] MEDS: BUDESONIDE 0.5 MG/2 ML INHA NPPB SCH ×2 (06:41→21:00)
[2018-07-14 07:11] VITALS: BP 136/85
[2018-07-14] MEDS: INSULIN REGULAR MEDIUM DOSE QDAY SQ-INSULIN SCH ×2 (09:00→20:20)
[2018-07-14 10:31] LABS: MICROSCOPIC NOT IND
[2018-07-14 10:46] LABS: CULTURE INDICATED? NO
[2018-07-14] MEDS: HEPARIN 25,000 UNITS/500ML PMX 500 ML IV PRN ×2 (11:23→20:20)
[2018-07-14 12:33] VITALS: BP 146/90
[2018-07-14] MEDS: HEPARIN 5,000 UNITS/ML, 1ML IV PRN ×2 (15:12→21:44)
--- NOTE | 2018-07-14 15:25 | NUR ---
Updated TF Recommendations: Vital AF 1.2 Full goal 70 ml/hr Via J-Tube Please do not check residuals
[2018-07-14] MEDS ORDERED: LIDOCAINE 1%, 10ML INFIL ONE (16:30)
[2018-07-14] MEDS ORDERED: DEXTROSE 70% IV SCH (17:00)
[2018-07-14] MEDS ORDERED: FAT EMUL IV SCH (17:00)
[2018-07-14] MEDS ORDERED: SMOF TPN IV SCH (17:00)
[2018-07-14] MEDS ORDERED: [UNRECOGNIZED DRUG - OTHER] IV SCH (17:00)
[2018-07-14] MEDS ORDERED: AMINO ACID 10% IV SCH (17:00)
[2018-07-14 19:48] VITALS: BP 143/94
[2018-07-15 02:41] VITALS: BP 116/77
[2018-07-15] MEDS: OCTREOTIDE 100MCG/ML, 1ML (0.1MG/ML) SQ SCH ×3 (03:56→20:45)
[2018-07-15 04:28] LABS: MEAN CORPUSCULAR HEMOGLOBIN 31.5 pg (27.5-34.5); MEAN CORPUSCULAR HGB CONC 33.1 g/dL (33.2-36.2); MEAN CORPUSCULAR VOLUME 95.2 fL (81-97); MEAN PLATELET VOLUME 7.7 fL (7.4-10.4); PLATELET COUNT 473 x10^3/uL (130-400); RED BLOOD COUNT 3.55 x10^6/uL (4.38-5.82); RED CELL DISTRIBUTION WIDTH 16.6 % (9.4-14.8)
[2018-07-15 04:41] LABS: ALBUMIN 1.4 g/dL (3.4-5.0); ANION GAP 5 mmol/L (5-15); CALCIUM 7.6 mg/dL (8.5-10.1); CHLORIDE 100 mmol/L (98-107)
[2018-07-15 04:44] LABS: ALANINE AMINOTRANSFERASE 16 U/L (12-78); ALKALINE PHOSPHATASE 147 U/L (45-117); BILIRUBIN,TOTAL 0.3 mg/dL (0.2-1.0); CREATININE 0.51 mg/dL (0.7-1.3); TOTAL PROTEIN 6.3 g/dL (6.4-8.2)
[2018-07-15 04:54] LABS: MD YES
[2018-07-15 04:55] LABS: BAND#(MANUAL) 1.01 x10^3/uL; BANDS%(MANUAL) 5 % (0-7); EOS% (MANUAL) 4 % (1-7); LYMPH#(MANUAL) 1.01 x10^3/uL (1-3.4); LYMPHS% (MANUAL) 5 % (22-44); MONOS#(MANUAL) 1.61 x10^3/uL (0.3-2.7); MONOS% (MANUAL) 8 % (2-9); SEG#(MANUAL) 15.68 x10^3/uL (1.8-6.8); SEGS% (MANUAL) 78 % (42-75)
[2018-07-15 04:56] LABS: <PLATELET ESTIMATE> INCREASED; <PLT MORPHOLOGY> NORMAL PLT MORPH; ANISOCYTOSIS 1+; PMNS WITH VACUOLES 1+; POLYCHROMASIA 1+; TOXIC GRAN 1+
[2018-07-15] MEDS: HEPARIN 25,000 UNITS/500ML PMX 500 ML IV PRN ×3 (05:28→23:37)
[2018-07-15 06:41] VITALS: BP 123/80
[2018-07-15] MEDS: ALBUTEROL/IPRATROPIUM 2.5MG/0.5MG, 3 ML NPPB SCH (08:03)
[2018-07-15] MEDS: BUDESONIDE 0.5 MG/2 ML INHA NPPB SCH ×2 (09:00→21:40)
[2018-07-15] MEDS: INSULIN REGULAR MEDIUM DOSE QDAY SQ-INSULIN SCH (09:20)
[2018-07-15] MEDS ORDERED: LIDOCAINE 1%, 10ML INFIL ONE (10:30)
[2018-07-15] MEDS ORDERED: SILVER NITRATE STICK TP ONE (11:10)
[2018-07-15 12:11] VITALS: BP 99/52
[2018-07-15] MEDS: PIPERACILLIN/TAZO/PMX 3.375GM 50 ML IV SCH ×2 (12:49→19:46)
[2018-07-15] MEDS: HYDROmorphone PCA 30 MG/30 ML IV PRN (15:32)
[2018-07-15 19:24] VITALS: BP 102/63
[2018-07-16 02:11] VITALS: BP 90/56
[2018-07-16] MEDS: PIPERACILLIN/TAZO/PMX 3.375GM 50 ML IV SCH ×3 (03:40→19:26)
[2018-07-16 05:53] LABS: MEAN CORPUSCULAR HEMOGLOBIN 32.2 pg (27.5-34.5); MEAN CORPUSCULAR HGB CONC 34.2 g/dL (33.2-36.2); MEAN CORPUSCULAR VOLUME 94.1 fL (81-97); MEAN PLATELET VOLUME 7.6 fL (7.4-10.4); PLATELET COUNT 544 x10^3/uL (130-400); RED BLOOD COUNT 2.48 x10^6/uL (4.38-5.82)
[2018-07-16] MEDS: OCTREOTIDE 100MCG/ML, 1ML (0.1MG/ML) SQ SCH (06:00)
[2018-07-16 06:04] LABS: CHLORIDE 99 mmol/L (98-107)
[2018-07-16 06:13] LABS: ALANINE AMINOTRANSFERASE 14 U/L (12-78); ALBUMIN 1.5 g/dL (3.4-5.0); ALKALINE PHOSPHATASE 143 U/L (45-117); ANION GAP 8 mmol/L (5-15); BILIRUBIN,TOTAL 0.5 mg/dL (0.2-1.0); CALCIUM 7.4 mg/dL (8.5-10.1); CREATININE 0.65 mg/dL (0.7-1.3); TOTAL PROTEIN 5.9 g/dL (6.4-8.2)
[2018-07-16 06:16] LABS: MD YES
[2018-07-16 06:18] LABS: ANISOCYTOSIS 1+; BAND#(MANUAL) 0.99 x10^3/uL; BANDS%(MANUAL) 7 % (0-7); EOS#(MANUAL) 0.85 x10^3/uL (0.0-0.4); EOS% (MANUAL) 6 % (1-7); LYMPH#(MANUAL) 1.27 x10^3/uL (1-3.4); LYMPHS% (MANUAL) 9 % (22-44); METAMYELOCYTES# (MANUAL) 0.14 x10^3/uL (0-0); METAMYELOCYTES% (MANUAL) 1 % (0-1); MONOS#(MANUAL) 1.27 x10^3/uL (0.3-2.7); MONOS% (MANUAL) 9 % (2-9); POLYCHROMASIA 1+; SEG#(MANUAL) 9.59 x10^3/uL (1.8-6.8); SEGS% (MANUAL) 68 % (42-75); TOXIC GRAN 1+
[2018-07-16 06:19] LABS: <PLATELET ESTIMATE> INCREASED; <PLT MORPHOLOGY> NORMAL PLT MORPH
[2018-07-16] MEDS: HEPARIN 25,000 UNITS/500ML PMX 500 ML IV PRN ×2 (07:04→14:52)
[2018-07-16 08:00] VITALS: BP 110/69
[2018-07-16] MEDS: BUDESONIDE 0.5 MG/2 ML INHA NPPB SCH ×2 (08:10→21:07)
[2018-07-16] MEDS ORDERED: OMNIPAQUE 350 MG/ML, 100ML BOTTLE ONE (12:11)
[2018-07-16 13:52] VITALS: BP 103/64
[2018-07-16 19:21] VITALS: BP 106/58
[2018-07-17] MEDS: HEPARIN 25,000 UNITS/500ML PMX 500 ML IV PRN ×3 (02:18→18:57)
[2018-07-17] MEDS: PIPERACILLIN/TAZO/PMX 3.375GM 50 ML IV SCH ×3 (02:53→22:52)
[2018-07-17 04:00] VITALS: BP 108/55
[2018-07-17 05:26] LABS: BASOPHILS # (AUTO) 0.01 x10^3/uL (0-0.1); BASOPHILS % (AUTO) 0 % (0-1); EOSINOPHILS # (AUTO) 0.81 x10^3/uL (0-0.4); EOSINOPHILS % (AUTO) 5 % (1-7); LYMPHOCYTES # (AUTO) 0.83 x10^3/uL (1-3.4); LYMPHOCYTES % (AUTO) 5 % (22-44); MD NO; MEAN CORPUSCULAR HEMOGLOBIN 31.8 pg (27.5-34.5); MEAN CORPUSCULAR HGB CONC 33.7 g/dL (33.2-36.2); MEAN CORPUSCULAR VOLUME 94.5 fL (81-97); MEAN PLATELET VOLUME 7.3 fL (7.4-10.4); MONOCYTES # (AUTO) 0.76 x10^3/uL (0.2-0.8); MONOCYTES % (AUTO) 5 % (2-9); NEUTROPHILS % (AUTO) 84 % (42-75); PLATELET COUNT 481 x10^3/uL (130-400); RED BLOOD COUNT 2.83 x10^6/uL (4.38-5.82)
[2018-07-17 05:40] LABS: ALBUMIN 1.4 g/dL (3.4-5.0); ANION GAP 8 mmol/L (5-15); CALCIUM 6.7 mg/dL (8.5-10.1); CHLORIDE 103 mmol/L (98-107)
[2018-07-17 05:44] LABS: ALANINE AMINOTRANSFERASE 14 U/L (12-78); ALKALINE PHOSPHATASE 144 U/L (45-117); BILIRUBIN,TOTAL 0.3 mg/dL (0.2-1.0); CREATININE 0.71 mg/dL (0.7-1.3); TOTAL PROTEIN 5.7 g/dL (6.4-8.2)
[2018-07-17 07:17] VITALS: BP 122/64
[2018-07-17] MEDS ORDERED: POTASSIUM CHLORIDE 20 MEQ PACKET JT ONE (08:30)
[2018-07-17] MEDS ORDERED: POTASSIUM CHLORIDE 40 MEQ in SODIUM CHLORIDE 0.9% 500 ML IV ONE (08:30)
[2018-07-17] MEDS: ALBUTEROL SULFATE 2.5 MG/3 ML NPPB SCH ×3 (09:00→21:00)
[2018-07-17] MEDS: BUDESONIDE 0.5 MG/2 ML INHA NPPB SCH ×2 (09:00→21:00)
[2018-07-17 12:19] LABS: CLOSTRIDIUM DIFFICILE ANTIGEN NEGATIVE; CLOSTRIDIUM DIFFICILE TOXIN NEGATIVE (Negative)
[2018-07-17 13:17] VITALS: BP 110/67
[2018-07-17] MEDS: CHOLESTYRAMINE LIGHT 4GM PACKET PO SCH ×2 (14:46→22:51)
[2018-07-17 15:52] LABS: HCT (SEDRATE) 23.3 % (39.2-51.8)
[2018-07-17 17:20] LABS: SEDIMENTATION RATE > 120 mm/hr (0-10)
[2018-07-17 19:24] VITALS: BP 147/70
[2018-07-17] MEDS ORDERED: CHOLESTYRAMINE LIGHT 4GM PACKET PO SCH (21:00)
[2018-07-18 01:14] VITALS: BP 119/69
[2018-07-18] MEDS: HEPARIN 25,000 UNITS/500ML PMX 500 ML IV PRN ×3 (03:25→20:15)
[2018-07-18] MEDS: ALBUTEROL SULFATE 2.5 MG/3 ML NPPB SCH ×4 (03:30→20:32)
[2018-07-18] MEDS: PIPERACILLIN/TAZO/PMX 3.375GM 50 ML IV SCH ×4 (04:33→22:33)
[2018-07-18 04:41] VITALS: BP 121/72
[2018-07-18 06:13] LABS: MEAN CORPUSCULAR HEMOGLOBIN 31.1 pg (27.5-34.5); MEAN CORPUSCULAR HGB CONC 32.5 g/dL (33.2-36.2); MEAN CORPUSCULAR VOLUME 95.7 fL (81-97); MEAN PLATELET VOLUME 7.4 fL (7.4-10.4); PLATELET COUNT 593 x10^3/uL (130-400); RED BLOOD COUNT 2.59 x10^6/uL (4.38-5.82)
[2018-07-18 06:22] LABS: ALANINE AMINOTRANSFERASE 12 U/L (12-78); ALBUMIN 1.4 g/dL (3.4-5.0); ANION GAP 10 mmol/L (5-15); CALCIUM 6.8 mg/dL (8.5-10.1); CHLORIDE 107 mmol/L (98-107); CREATININE 0.62 mg/dL (0.7-1.3)
[2018-07-18 06:25] LABS: ALKALINE PHOSPHATASE 144 U/L (45-117); BILIRUBIN,TOTAL 0.5 mg/dL (0.2-1.0)
[2018-07-18 07:20] VITALS: BP 124/72
[2018-07-18 07:21] LABS: BASOPHILS # (AUTO) 0.07 x10^3/uL (0-0.1); BASOPHILS % (AUTO) 0 % (0-1); EOSINOPHILS # (AUTO) 0.36 x10^3/uL (0-0.4); EOSINOPHILS % (AUTO) 2 % (1-7); LYMPHOCYTES # (AUTO) 0.92 x10^3/uL (1-3.4); LYMPHOCYTES % (AUTO) 5 % (22-44); MD SCAN; MONOCYTES # (AUTO) 1.06 x10^3/uL (0.2-0.8); MONOCYTES % (AUTO) 6 % (2-9); NEUTROPHILS % (AUTO) 86 % (42-75)
[2018-07-18] MEDS ORDERED: POTASSIUM CHLORIDE 40 MEQ in SODIUM CHLORIDE 0.9% 500 ML IV ONE (08:00)
[2018-07-18] MEDS: BUDESONIDE 0.5 MG/2 ML INHA NPPB SCH ×2 (08:35→20:32)
[2018-07-18] MEDS: CHOLESTYRAMINE LIGHT 4GM PACKET PO SCH ×2 (09:00→20:35)
[2018-07-18 13:03] VITALS: BP 138/87
[2018-07-18 19:35] VITALS: BP 122/79
[2018-07-19 02:03] VITALS: BP 128/85
[2018-07-19] MEDS: ALBUTEROL SULFATE 2.5 MG/3 ML NPPB SCH ×4 (03:00→20:10)
[2018-07-19] MEDS: PIPERACILLIN/TAZO/PMX 3.375GM 50 ML IV SCH ×4 (04:02→22:49)
[2018-07-19] MEDS: HEPARIN 25,000 UNITS/500ML PMX 500 ML IV PRN ×3 (04:51→20:52)
[2018-07-19 04:58] LABS: MEAN CORPUSCULAR HEMOGLOBIN 32.3 pg (27.5-34.5); MEAN CORPUSCULAR HGB CONC 33.7 g/dL (33.2-36.2); MEAN CORPUSCULAR VOLUME 95.8 fL (81-97); MEAN PLATELET VOLUME 7.1 fL (7.4-10.4); PLATELET COUNT 574 x10^3/uL (130-400); RED BLOOD COUNT 2.53 x10^6/uL (4.38-5.82); RED CELL DISTRIBUTION WIDTH 16.9 % (9.4-14.8)
[2018-07-19 05:07] LABS: ALBUMIN 1.6 g/dL (3.4-5.0); ANION GAP 7 mmol/L (5-15); CHLORIDE 108 mmol/L (98-107)
[2018-07-19 05:10] LABS: ALANINE AMINOTRANSFERASE 11 U/L (12-78); ALKALINE PHOSPHATASE 162 U/L (45-117); BILIRUBIN,TOTAL 0.2 mg/dL (0.2-1.0); CREATININE 0.59 mg/dL (0.7-1.3); TOTAL PROTEIN 6.1 g/dL (6.4-8.2)
[2018-07-19 05:45] LABS: BASOPHILS # (AUTO) 0.02 x10^3/uL (0-0.1); BASOPHILS % (AUTO) 0 % (0-1); EOSINOPHILS % (AUTO) 4 % (1-7); LYMPHOCYTES # (AUTO) 0.96 x10^3/uL (1-3.4); LYMPHOCYTES % (AUTO) 6 % (22-44); MD SCAN; MONOCYTES # (AUTO) 0.22 x10^3/uL (0.2-0.8); MONOCYTES % (AUTO) 1 % (2-9); NEUTROPHILS # (AUTO) 14.63 x10^3/uL (1.8-6.8); NEUTROPHILS % (AUTO) 89 % (42-75)
[2018-07-19] MEDS: HEPARIN 5,000 UNITS/ML, 1ML IV PRN (06:35)
[2018-07-19 07:56] VITALS: BP 142/77
[2018-07-19] MEDS: CHOLESTYRAMINE LIGHT 4GM PACKET PO SCH ×2 (08:36→20:52)
[2018-07-19] MEDS: LIDODERM 5% PATCH TD SCH ×2 (10:25→22:47)
[2018-07-19] MEDS: OXYcodone IR 5MG TABLET PO PRN ×3 (10:25→22:49)
[2018-07-19] MEDS: ACETAMINOPHEN 500 MG TABLET PO SCH ×3 (10:34→22:48)
[2018-07-19] MEDS: BUDESONIDE 0.5 MG/2 ML INHA NPPB SCH ×2 (10:40→20:10)
[2018-07-19] MEDS ORDERED: MAGNESIUM SULFATE PMX 2GM/50ML 50 ML IV ONE (11:00)
[2018-07-19] MEDS ORDERED: POTASSIUM CHLORIDE 40 MEQ in SODIUM CHLORIDE 0.9% 500 ML IV ONE (11:00)
[2018-07-19 12:33] VITALS: BP 120/77
[2018-07-19 19:53] VITALS: BP 123/79
[2018-07-20 01:26] VITALS: BP 119/71
[2018-07-20 01:29] LABS: BASOPHILS # (AUTO) 0.01 x10^3/uL (0-0.1); BASOPHILS % (AUTO) 0 % (0-1); EOSINOPHILS # (AUTO) 0.86 x10^3/uL (0-0.4); EOSINOPHILS % (AUTO) 7 % (1-7); LYMPHOCYTES # (AUTO) 0.96 x10^3/uL (1-3.4); LYMPHOCYTES % (AUTO) 7 % (22-44); MD NO; MEAN CORPUSCULAR HEMOGLOBIN 31.7 pg (27.5-34.5); MEAN CORPUSCULAR HGB CONC 32.9 g/dL (33.2-36.2); MEAN CORPUSCULAR VOLUME 96.3 fL (81-97); MEAN PLATELET VOLUME 6.6 fL (7.4-10.4); MONOCYTES # (AUTO) 0.91 x10^3/uL (0.2-0.8); MONOCYTES % (AUTO) 7 % (2-9); NEUTROPHILS # (AUTO) 10.52 x10^3/uL (1.8-6.8); NEUTROPHILS % (AUTO) 79 % (42-75); PLATELET COUNT 648 x10^3/uL (130-400); RED BLOOD COUNT 2.59 x10^6/uL (4.38-5.82); RED CELL DISTRIBUTION WIDTH 17.2 % (9.4-14.8)
[2018-07-20 01:42] LABS: ALBUMIN 1.5 g/dL (3.4-5.0); ANION GAP 9 mmol/L (5-15); CHLORIDE 109 mmol/L (98-107)
[2018-07-20 01:45] LABS: ALANINE AMINOTRANSFERASE 14 U/L (12-78); ALKALINE PHOSPHATASE 143 U/L (45-117); BILIRUBIN,TOTAL 0.3 mg/dL (0.2-1.0); CREATININE 0.64 mg/dL (0.7-1.3); TOTAL PROTEIN 6.2 g/dL (6.4-8.2)
[2018-07-20] MEDS: ALBUTEROL SULFATE 2.5 MG/3 ML NPPB SCH ×4 (02:35→21:00)
[2018-07-20] MEDS: OXYcodone IR 5MG TABLET PO PRN ×3 (04:52→21:24)
[2018-07-20] MEDS: PIPERACILLIN/TAZO/PMX 3.375GM 50 ML IV SCH ×4 (04:52→23:11)
[2018-07-20] MEDS: ACETAMINOPHEN 500 MG TABLET PO SCH ×4 (04:52→23:11)
[2018-07-20] MEDS: HEPARIN 25,000 UNITS/500ML PMX 500 ML IV PRN ×3 (05:33→22:21)
[2018-07-20 07:30] VITALS: BP 132/77
[2018-07-20] MEDS: CHOLESTYRAMINE LIGHT 4GM PACKET PO SCH ×2 (08:06→22:17)
[2018-07-20] MEDS: BUDESONIDE 0.5 MG/2 ML INHA NPPB SCH ×2 (08:36→21:00)
[2018-07-20 14:43] VITALS: BP 146/91
[2018-07-20] MEDS ORDERED: POTASSIUM CHLORIDE 40 MEQ in SODIUM CHLORIDE 0.9% 500 ML IV ONE (18:00)
[2018-07-20 19:44] VITALS: BP 118/74
[2018-07-20] MEDS: LIDODERM 5% PATCH TD SCH (23:12)
[2018-07-21 02:13] VITALS: BP 122/77
[2018-07-21] MEDS: ALBUTEROL SULFATE 2.5 MG/3 ML NPPB SCH ×4 (03:00→21:00)
[2018-07-21] MEDS: PIPERACILLIN/TAZO/PMX 3.375GM 50 ML IV SCH ×4 (05:19→22:55)
[2018-07-21] MEDS: ACETAMINOPHEN 500 MG TABLET PO SCH ×3 (05:19→17:17)
[2018-07-21 05:31] LABS: BASOPHILS # (AUTO) 0.05 x10^3/uL (0-0.1); BASOPHILS % (AUTO) 0 % (0-1); EOSINOPHILS # (AUTO) 0.76 x10^3/uL (0-0.4); EOSINOPHILS % (AUTO) 7 % (1-7); LYMPHOCYTES # (AUTO) 1.01 x10^3/uL (1-3.4); LYMPHOCYTES % (AUTO) 9 % (22-44); MD NO; MEAN CORPUSCULAR HGB CONC 32.4 g/dL (33.2-36.2); MEAN CORPUSCULAR VOLUME 95.6 fL (81-97); MEAN PLATELET VOLUME 7.1 fL (7.4-10.4); MONOCYTES # (AUTO) 0.75 x10^3/uL (0.2-0.8); MONOCYTES % (AUTO) 7 % (2-9); NEUTROPHILS # (AUTO) 8.54 x10^3/uL (1.8-6.8); NEUTROPHILS % (AUTO) 77 % (42-75); PLATELET COUNT 728 x10^3/uL (130-400); RED BLOOD COUNT 2.86 x10^6/uL (4.38-5.82); RED CELL DISTRIBUTION WIDTH 16.9 % (9.4-14.8)
[2018-07-21 05:46] LABS: CHLORIDE 110 mmol/L (98-107)
[2018-07-21] MEDS: HEPARIN 25,000 UNITS/500ML PMX 500 ML IV PRN ×3 (05:50→22:32)
[2018-07-21 05:53] LABS: ALANINE AMINOTRANSFERASE 13 U/L (12-78); ALBUMIN 1.7 g/dL (3.4-5.0); ALKALINE PHOSPHATASE 142 U/L (45-117); ANION GAP 10 mmol/L (5-15); BILIRUBIN,TOTAL 0.3 mg/dL (0.2-1.0); CALCIUM 7.4 mg/dL (8.5-10.1); CREATININE 0.65 mg/dL (0.7-1.3); TOTAL PROTEIN 6.8 g/dL (6.4-8.2)
[2018-07-21 07:12] VITALS: BP 149/91
[2018-07-21] MEDS: CHOLESTYRAMINE LIGHT 4GM PACKET PO SCH ×2 (08:15→22:55)
[2018-07-21] MEDS ORDERED: LIDOCAINE-MPF 2% ,5ML ONE (08:45)
[2018-07-21] MEDS ORDERED: FENTANYL/BUPIV./NS/PF 250 ML EPIDCONT ONE (08:45)
[2018-07-21] MEDS ORDERED: BUPIVACAINE/PF 0.25% ONE (08:45)
[2018-07-21] MEDS ORDERED: LIDOCAINE/PF 1.5%-EPI 1:200K, 30ML ONE (08:45)
[2018-07-21] MEDS: BUDESONIDE 0.5 MG/2 ML INHA NPPB SCH ×2 (08:51→21:00)
[2018-07-21] MEDS: OXYcodone IR 5MG TABLET PO PRN ×2 (09:57→21:28)
[2018-07-21] MEDS ORDERED: POTASSIUM CHLORIDE 20 MEQ in SODIUM CHLORIDE 0.9% 250 ML IV ONE (13:30)
[2018-07-21 13:37] VITALS: BP 142/91
[2018-07-21 21:01] VITALS: BP 145/83
[2018-07-22] MEDS: ALBUTEROL SULFATE 2.5 MG/3 ML NPPB SCH ×3 (03:00→11:26)
[2018-07-22 03:59] VITALS: BP 133/84
[2018-07-22] MEDS: ACETAMINOPHEN 500 MG TABLET PO SCH ×5 (05:00→23:35)
[2018-07-22] MEDS: PIPERACILLIN/TAZO/PMX 3.375GM 50 ML IV SCH ×4 (05:27→23:28)
[2018-07-22 05:53] LABS: BASOPHILS # (AUTO) 0.04 x10^3/uL (0-0.1); BASOPHILS % (AUTO) 1 % (0-1); EOSINOPHILS # (AUTO) 0.63 x10^3/uL (0-0.4); EOSINOPHILS % (AUTO) 7 % (1-7); LYMPHOCYTES # (AUTO) 1.05 x10^3/uL (1-3.4); LYMPHOCYTES % (AUTO) 11 % (22-44); MD NO; MEAN CORPUSCULAR HEMOGLOBIN 31.7 pg (27.5-34.5); MEAN CORPUSCULAR HGB CONC 33.3 g/dL (33.2-36.2); MEAN CORPUSCULAR VOLUME 95.4 fL (81-97); MEAN PLATELET VOLUME 6.9 fL (7.4-10.4); MONOCYTES # (AUTO) 0.76 x10^3/uL (0.2-0.8); MONOCYTES % (AUTO) 8 % (2-9); NEUTROPHILS % (AUTO) 74 % (42-75); PLATELET COUNT 705 x10^3/uL (130-400); RED BLOOD COUNT 2.76 x10^6/uL (4.38-5.82); RED CELL DISTRIBUTION WIDTH 17.5 % (9.4-14.8)
[2018-07-22 06:06] LABS: ALBUMIN 1.9 g/dL (3.4-5.0); ANION GAP 10 mmol/L (5-15); CALCIUM 7.4 mg/dL (8.5-10.1); CHLORIDE 107 mmol/L (98-107)
[2018-07-22 06:12] LABS: ALANINE AMINOTRANSFERASE 12 U/L (12-78); ALKALINE PHOSPHATASE 131 U/L (45-117); BILIRUBIN,TOTAL 0.2 mg/dL (0.2-1.0); CREATININE 0.55 mg/dL (0.7-1.3)
[2018-07-22] MEDS: LIDODERM 5% PATCH TD SCH (07:01)
[2018-07-22 07:35] VITALS: BP 128/81
[2018-07-22] MEDS: CHOLESTYRAMINE LIGHT 4GM PACKET PO SCH ×2 (09:00→21:00)
[2018-07-22] MEDS: BUDESONIDE 0.5 MG/2 ML INHA NPPB SCH ×2 (09:00→21:00)
[2018-07-22] MEDS: HEPARIN 5,000 UNITS/ML, 1ML IV PRN (09:49)
[2018-07-22] MEDS: HEPARIN 25,000 UNITS/500ML PMX 500 ML IV PRN (10:38)
[2018-07-22] MEDS ORDERED: ALBUTEROL SULFATE 2.5 MG/3 ML NPPB PRN (11:30)
[2018-07-22 13:01] VITALS: BP 131/81
[2018-07-22] MEDS ORDERED: WARFARIN 7.5 MG TABLET PO-COUM SCH (18:00)
[2018-07-22 18:32] LABS: INTERNATIONAL NORMALIZED RATIO 1.14 (0.93-1.1)
[2018-07-22 19:13] VITALS: BP 128/79
[2018-07-23 02:38] VITALS: BP 141/82
[2018-07-23] MEDS: ACETAMINOPHEN 500 MG TABLET PO SCH ×2 (05:26→11:13)
[2018-07-23] MEDS: PIPERACILLIN/TAZO/PMX 3.375GM 50 ML IV SCH ×2 (05:26→11:13)
[2018-07-23 05:32] LABS: BASOPHILS # (AUTO) 0.01 x10^3/uL (0-0.1); BASOPHILS % (AUTO) 0 % (0-1); EOSINOPHILS % (AUTO) 5 % (1-7); LYMPHOCYTES # (AUTO) 0.78 x10^3/uL (1-3.4); LYMPHOCYTES % (AUTO) 9 % (22-44); MD NO; MEAN CORPUSCULAR HEMOGLOBIN 30.8 pg (27.5-34.5); MEAN CORPUSCULAR HGB CONC 32.4 g/dL (33.2-36.2); MEAN CORPUSCULAR VOLUME 95.3 fL (81-97); MEAN PLATELET VOLUME 6.5 fL (7.4-10.4); MONOCYTES # (AUTO) 0.86 x10^3/uL (0.2-0.8); MONOCYTES % (AUTO) 10 % (2-9); NEUTROPHILS # (AUTO) 6.79 x10^3/uL (1.8-6.8); NEUTROPHILS % (AUTO) 77 % (42-75); PLATELET COUNT 634 x10^3/uL (130-400); RED BLOOD COUNT 2.64 x10^6/uL (4.38-5.82); RED CELL DISTRIBUTION WIDTH 17.1 % (9.4-14.8)
[2018-07-23 05:38] LABS: INTERNATIONAL NORMALIZED RATIO 1.21 (0.93-1.1); PROTHROMBIN TIME 12.7 Seconds (9.6-11.5)
[2018-07-23 05:42] LABS: ALANINE AMINOTRANSFERASE 12 U/L (12-78); ALBUMIN 1.7 g/dL (3.4-5.0); ANION GAP 8 mmol/L (5-15); CALCIUM 7.6 mg/dL (8.5-10.1); CHLORIDE 109 mmol/L (98-107); CREATININE 0.58 mg/dL (0.7-1.3)
[2018-07-23 05:44] LABS: ALKALINE PHOSPHATASE 126 U/L (45-117); BILIRUBIN,TOTAL 0.2 mg/dL (0.2-1.0); TOTAL PROTEIN 6.4 g/dL (6.4-8.2)
[2018-07-23 07:09] VITALS: BP 147/97
[2018-07-23] MEDS: BUDESONIDE 0.5 MG/2 ML INHA NPPB SCH (07:20)
[2018-07-23] MEDS: CHOLESTYRAMINE LIGHT 4GM PACKET PO SCH (08:13)
[2018-07-23] MEDS: LIDODERM 5% PATCH TD SCH (08:14)
[2018-07-23] MEDS ORDERED: POTASSIUM CHLORIDE 20 MEQ TAB.ER.PRT PO ONE (09:30)
[2018-07-23] MEDS ORDERED: ENOXAPARIN 120MG/0.8ML SQ SCH (10:00)
[2018-07-23] MEDS ORDERED: ACET-1600 PO (10:52)
[2018-07-23] MEDS ORDERED: IBUP200T49 PO (10:54)
[2018-07-23] MEDS ORDERED: OXYC5TAB2 PO (10:56)
[2018-07-23] MEDS ORDERED: WARF7.5T PO (10:57)
[2018-07-23] MEDS ORDERED: ENOX120S5 SQ (10:58)
== END 2018-07-23 14:38 | disposition home health service (06) | DRG 356 ==
LOC: ORIP 08:54 → CCU 19:54 → ICU 07-03 07:55 → 4NOR 07-03 17:57 → DCLOUNGE 07-23 14:23
PROVIDERS: ADMIT Surgery; ATTEND Surgery
PROC: 07BB4ZX Excision of Mesenteric Lymphatic, Percutaneous Endoscopic Approach, Diagnostic (ICD-10-PCS; 2018-07-02)
PROC: 03HY32Z Insertion of Monitoring Device into Upper Artery, Percutaneous Approach (ICD-10-PCS; 2018-07-02)
PROC: 0DB64ZX Excision of Stomach, Percutaneous Endoscopic Approach, Diagnostic (ICD-10-PCS; 2018-07-02)
PROC: 4A133B1 Monitoring of Arterial Pressure, Peripheral, Percutaneous Approach (ICD-10-PCS; 2018-07-02)
PROC: 4A133J1 Monitoring of Arterial Pulse, Peripheral, Percutaneous Approach (ICD-10-PCS; 2018-07-02)
PROC: 0DB34ZZ Excision of Lower Esophagus, Percutaneous Endoscopic Approach (ICD-10-PCS; principal; 2018-07-02 11:00)
PROC: 02HV33Z Insertion of Infusion Device into Superior Vena Cava, Percutaneous Approach (ICD-10-PCS; 2018-07-08)
PROC: B548ZZA Ultrasonography of Superior Vena Cava, Guidance (ICD-10-PCS; 2018-07-08)
PROC: B5181ZA Fluoroscopy of Superior Vena Cava using Low Osmolar Contrast, Guidance (ICD-10-PCS; 2018-07-08)
PROC: 0W9B30Z Drainage of Left Pleural Cavity with Drainage Device, Percutaneous Approach (ICD-10-PCS; 2018-07-08)
DX: C15.9 Malignant neoplasm of esophagus, unspecified (principal); I26.99 Other pulmonary embolism without acute cor pulmonale; J18.9 Pneumonia, unspecified organism; E44.0 Moderate protein-calorie malnutrition; J90 Pleural effusion, not elsewhere classified; K91.89 Other postprocedural complications and disorders of digestive system; L76.32 Postprocedural hematoma of skin and subcutaneous tissue following other procedure; N17.9 Acute kidney failure, unspecified; K56.7 Ileus, unspecified; D64.9 Anemia, unspecified; E03.9 Hypothyroidism, unspecified; E83.42 Hypomagnesemia; E87.6 Hypokalemia; I89.8 Other specified noninfective disorders of lymphatic vessels and lymph nodes; J45.909 Unspecified asthma, uncomplicated; R09.02 Hypoxemia; Y84.2 Radiological procedure and radiotherapy as the cause of abnormal reaction of the patient, or of later complication, without mention of misadventure at the time of the procedure; Z79.01 Long term (current) use of anticoagulants; Z68.34 Body mass index [BMI] 34.0-34.9, adult; Z85.01 Personal history of malignant neoplasm of esophagus; Z87.891 Personal history of nicotine dependence; Z92.21 Personal history of antineoplastic chemotherapy; Z92.3 Personal history of irradiation; Z93.1 Gastrostomy status; Z93.4 Other artificial openings of gastrointestinal tract status
CPT/HCPCS: 32557; 36415; 36600; 74018; 74241; 77001; 84145; 87046; 87427; J3475; J3490; J7613; J7620; J7626; 32551; 36569; 71045; 71260; 71275; 74177; 76937; 78226; 80048; 80053; 81003; 82565; 82710; 82803; 82962; 83735; 84100; 84132; 84134; 84478; 85025; 85520; 85610; 85651; 86140; 87040; 87070; 87081; 87205; 87252; 87324; 88305; 88307; 89055; 93005; 94640; 94667; C1729; G0378; J0610; J0690; J1100; J1170; J1644; J1650; J1815; J1885; J2250; J2354; J2405; J2543; J2704; J2710; J3010; J3480; Q9967; A9537; C1751; C1769; C9898; J0330; J2370; J3420; J7030; J7040; J7050; J7120